=== PATIENT | female | born 1995 | race African-American/Black ===

== ENCOUNTER 2018-09-14 19:27 | Emergency (ER) | payer BC ==
[2018-09-14] MEDS: IBUPROFEN 800 MG TAB PO (20:45)
== END 2018-09-14 23:47 | disposition home or self-care (01) ==
LOC: FTE 19:27
DX: S99.912A Unspecified injury of left ankle, initial encounter (principal); S39.92XA Unspecified injury of lower back, initial encounter; X50.1XXA Overexertion from prolonged static or awkward postures, initial encounter; Y92.9 Unspecified place or not applicable
CPT/HCPCS: 72100; 73610; 73630-LT; 81025; 99284-25